=== PATIENT | male | born 1985 | race African-American/Black ===

== ENCOUNTER 2023-03-22 12:13 | Inpatient (IN) | payer OTHER ==
[2023-03-22 12:55] VITALS: BMI 35.9
[2023-03-22] MEDS ORDERED: MAGNESIUM HYDROX 2400MG/30ML ORAL SUSPENSION 30 ML CUP PO PRN (14:08)
[2023-03-22] MEDS ORDERED: NALOXONE HCL (KLOXXADO) 8 MG SPRAY NS PRN (14:08)
[2023-03-22] MEDS ORDERED: MAG HYDROX/AL HYDROX/SIMETH 30 ML UNIT-DOSE CUP PO PRN (14:08)
[2023-03-22] MEDS ORDERED: guaiFENesin 600 MG TABLET.ER (FP) PO PRN (14:08)
[2023-03-22] MEDS ORDERED: ONDANSETRON *ODT* 4 MG TABLET SL PRN (14:08)
[2023-03-22] MEDS ORDERED: BISMUTH SUBSALICYLATE 524 MG/30 ML PO PRN (14:08)
[2023-03-22] MEDS ORDERED: IBUPROFEN 400 MG TABLET (FP) PO PRN (14:08)
[2023-03-22] MEDS ORDERED: NICOTINE 10 MG CARTRIDGE (INHALER) IH PRN (14:08)
[2023-03-22] MEDS ORDERED: BENZONATATE 200 MG CAPSULE PO PRN (14:08)
[2023-03-22] MEDS ORDERED: POLYETHYLENE GLYCOL (HEALTHYLAX) 3350 17 GM PACKET PO PRN (14:08)
[2023-03-22] MEDS ORDERED: IBUPROFEN 600 MG TABLET (FP) PO PRN (14:08)
[2023-03-22] MEDS ORDERED: LOPERAMIDE HCL 2 MG CAPSULE PO PRN (14:08)
[2023-03-22] MEDS ORDERED: BENZOCAINE/MENTHOL (CHLORASEPTIC ) LOZENGE MM PRN (14:08)
[2023-03-22] MEDS ORDERED: DICYCLOMINE HCL 10 MG CAPSULE PO PRN (14:08)
[2023-03-22] MEDS ORDERED: NALOXONE HCL 0.4 MG/ML VIAL IM PRN (14:08)
[2023-03-22] MEDS ORDERED: ACETAMINOPHEN 325 MG TABLET (FP) PO PRN (14:08)
[2023-03-22] MEDS ORDERED: NICOTINE POLACRILEX 2 MG GUM BUC PRN (14:19)
[2023-03-22] MEDS ORDERED: COLLOIDAL OATMEAL 1 BAR EACH TP PRN (14:19)
[2023-03-22] MEDS ORDERED: AMMONIUM LACTATE 12% LOTION 225 GM BOTTLE TP PRN (14:19)
[2023-03-22] MEDS: BACITRACIN ZINC 15 GM TUBE TOPICAL OINTMENT TP SCH (14:49)
[2023-03-22] MEDS: THIAMINE HCL 100 MG TABLET (FP) PO SCH (22:38)
[2023-03-22] MEDS: hydrOXYzine PAMOATE 25 MG CAPSULE (FP) PO PRN (22:38)
[2023-03-22] MEDS: METHOCARBAMOL 500 MG TABLET PO PRN (22:38)
[2023-03-22] MEDS: MELATONIN 5 MG TABLETS PO SCH (22:38)
[2023-03-22] MEDS: SULFAMETHOXAZOLE/TRIMETHOPRIM 800MG/160MG D.S. TABLET PO SCH (22:38)
[2023-03-23] MEDS: BACITRACIN ZINC 15 GM TUBE TOPICAL OINTMENT TP SCH (11:01)
[2023-03-23] MEDS: NICOTINE 21 MG/24 HOURS TOPICAL PATCH TD SCH (11:02)
[2023-03-23] MEDS: PRENATAL VITAMINS W/ FOLIC ACID TABLET (FP) PO SCH (11:02)
[2023-03-23] MEDS: SULFAMETHOXAZOLE/TRIMETHOPRIM 800MG/160MG D.S. TABLET PO SCH ×2 (11:02→22:54)
[2023-03-23] MEDS ORDERED: diazePAM 5 MG TABLET PO PRN (11:55)
[2023-03-23 12:30] LABS: HEMATOCRIT 34.3 % (35.4-49); HEMOGLOBIN 11.2 GM/dL (11.7-16.9); MCH 27.5 pg (25.7-33.7); MCHC 32.7 g/dl (32.0-35.9); MEAN PLT VOLUME 9.3 fl (7.5-11.1); PLATELET COUNT 231 10^3/uL (134-434); RBC 4.09 M/mm3 (4.00-5.60); RDW 14.9 % (11.9-15.9); WHITE BLOOD COUNT 4.7 K/mm3 (4.0-10.0)
[2023-03-23] MEDS: risperiDONE 1 MG TABLET PO SCH ×2 (12:51→23:03)
[2023-03-23 13:19] LABS: POTASSIUM 4.3 mmol/L (3.5-5.1)
[2023-03-23 13:47] LABS: ALBUMIN 3.4 g/dl (3.4-5.0); BLOOD UREA NITROGEN 10.1 mg/dL (7-18); CALCIUM 9.2 mg/dL (8.5-10.1)
[2023-03-23 13:49] LABS: CREATININE 0.9 mg/dL (0.55-1.3)
[2023-03-23 13:51] LABS: BILIRUBIN,TOTAL 0.3 mg/dL (0.2-1); TOT PROT 6.7 g/dl (6.4-8.2)
[2023-03-23] MEDS: diazePAM 5 MG TABLET PO SCH ×2 (17:31→23:03)
[2023-03-23] MEDS: DIVALPROEX SODIUM 500 MG TABLET E.C. PO SCH (23:02)
[2023-03-23] MEDS: MELATONIN 5 MG TABLETS PO SCH (23:02)
[2023-03-23] MEDS: THIAMINE HCL 100 MG TABLET (FP) PO SCH (23:03)
[2023-03-24] MEDS: diazePAM 5 MG TABLET PO SCH ×4 (05:50→22:36)
[2023-03-24] MEDS: hydrOXYzine PAMOATE 25 MG CAPSULE (FP) PO PRN (10:48)
[2023-03-24] MEDS: METHOCARBAMOL 500 MG TABLET PO PRN (10:48)
[2023-03-24] MEDS: risperiDONE 1 MG TABLET PO SCH ×2 (10:48→22:32)
[2023-03-24] MEDS: PRENATAL VITAMINS W/ FOLIC ACID TABLET (FP) PO SCH (10:48)
[2023-03-24] MEDS: DIVALPROEX SODIUM 500 MG TABLET E.C. PO SCH ×2 (10:48→22:31)
[2023-03-24] MEDS: BACITRACIN ZINC 15 GM TUBE TOPICAL OINTMENT TP SCH (10:48)
[2023-03-24] MEDS: SULFAMETHOXAZOLE/TRIMETHOPRIM 800MG/160MG D.S. TABLET PO SCH ×2 (10:48→22:31)
[2023-03-24] MEDS: NICOTINE 21 MG/24 HOURS TOPICAL PATCH TD SCH (10:49)
[2023-03-24] MEDS: THIAMINE HCL 100 MG TABLET (FP) PO SCH (22:31)
[2023-03-24] MEDS: MELATONIN 5 MG TABLETS PO SCH (22:32)
[2023-03-25] MEDS: diazePAM 5 MG TABLET PO SCH ×3 (06:07→22:30)
[2023-03-25] MEDS: SULFAMETHOXAZOLE/TRIMETHOPRIM 800MG/160MG D.S. TABLET PO SCH ×2 (10:51→22:30)
[2023-03-25] MEDS: PRENATAL VITAMINS W/ FOLIC ACID TABLET (FP) PO SCH (10:51)
[2023-03-25] MEDS: DIVALPROEX SODIUM 500 MG TABLET E.C. PO SCH ×2 (10:51→22:30)
[2023-03-25] MEDS: risperiDONE 1 MG TABLET PO SCH ×2 (10:52→22:30)
[2023-03-25] MEDS: BACITRACIN ZINC 15 GM TUBE TOPICAL OINTMENT TP SCH (10:52)
[2023-03-25] MEDS: NICOTINE 21 MG/24 HOURS TOPICAL PATCH TD SCH (10:52)
[2023-03-25] MEDS: THIAMINE HCL 100 MG TABLET (FP) PO SCH (22:30)
[2023-03-25] MEDS: MELATONIN 5 MG TABLETS PO SCH (22:31)
[2023-03-26] MEDS: diazePAM 5 MG TABLET PO SCH ×2 (05:32→18:06)
[2023-03-26] MEDS: PRENATAL VITAMINS W/ FOLIC ACID TABLET (FP) PO SCH (10:48)
[2023-03-26] MEDS: hydrOXYzine PAMOATE 25 MG CAPSULE (FP) PO PRN (10:49)
[2023-03-26] MEDS: SULFAMETHOXAZOLE/TRIMETHOPRIM 800MG/160MG D.S. TABLET PO SCH ×2 (10:49→22:15)
[2023-03-26] MEDS: DIVALPROEX SODIUM 500 MG TABLET E.C. PO SCH ×2 (10:49→22:15)
[2023-03-26] MEDS: risperiDONE 1 MG TABLET PO SCH ×2 (10:49→22:15)
[2023-03-26] MEDS: METHOCARBAMOL 500 MG TABLET PO PRN (10:49)
[2023-03-26] MEDS: NICOTINE 21 MG/24 HOURS TOPICAL PATCH TD SCH (10:50)
[2023-03-26] MEDS: BACITRACIN ZINC 15 GM TUBE TOPICAL OINTMENT TP SCH (10:50)
[2023-03-26] MEDS: MELATONIN 5 MG TABLETS PO SCH (22:15)
[2023-03-26] MEDS: THIAMINE HCL 100 MG TABLET (FP) PO SCH (22:15)
[2023-03-27] MEDS ORDERED: diazePAM 5 MG TABLET PO ONE (06:00)
[2023-03-27 06:55] VITALS: TEMP 97.3
[2023-03-27 09:42] VITALS: BP 108/75; PULSE 86; RESP 18
[2023-03-27] MEDS: SULFAMETHOXAZOLE/TRIMETHOPRIM 800MG/160MG D.S. TABLET PO SCH (09:59)
[2023-03-27] MEDS: PRENATAL VITAMINS W/ FOLIC ACID TABLET (FP) PO SCH (09:59)
[2023-03-27] MEDS: DIVALPROEX SODIUM 500 MG TABLET E.C. PO SCH (09:59)
[2023-03-27] MEDS: BACITRACIN ZINC 15 GM TUBE TOPICAL OINTMENT TP SCH (09:59)
[2023-03-27] MEDS: risperiDONE 1 MG TABLET PO SCH (09:59)
[2023-03-27] MEDS: NICOTINE 21 MG/24 HOURS TOPICAL PATCH TD SCH (10:00)
== END 2023-03-27 11:25 | disposition other institution (70) | DRG 774 ==
LOC: YASAS 12:13 → Y6N 14:00
PROVIDERS: ADMIT Allergy & Immunology; ATTEND Surgery
PROC: HZ2ZZZZ Detoxification Services for Substance Abuse Treatment (ICD-10-PCS; principal; 2023-03-22)
DX: F13.230 Sedative, hypnotic or anxiolytic dependence with withdrawal, uncomplicated (principal); F14.20 Cocaine dependence, uncomplicated; F12.20 Cannabis dependence, uncomplicated; F17.210 Nicotine dependence, cigarettes, uncomplicated; F25.9 Schizoaffective disorder, unspecified; F31.9 Bipolar disorder, unspecified; L97.319 Non-pressure chronic ulcer of right ankle with unspecified severity; Z86.718 Personal history of other venous thrombosis and embolism; Z86.11 Personal history of tuberculosis
CPT/HCPCS: 36415; 71045-TC-FY; 80053; 85027; 86780; 87811; C9803-CS; U0003; U0005

== ENCOUNTER 2023-03-27 11:28 | Inpatient (IN) | payer OTHER ==
[2023-03-27] MEDS ORDERED: hydrOXYzine PAMOATE 25 MG CAPSULE (FP) PO PRN (11:53)
[2023-03-27] MEDS ORDERED: guaiFENesin 600 MG TABLET.ER (FP) PO PRN (11:53)
[2023-03-27] MEDS ORDERED: IBUPROFEN 400 MG TABLET (FP) PO PRN (11:53)
[2023-03-27] MEDS ORDERED: BENZOCAINE/MENTHOL (CHLORASEPTIC ) LOZENGE MM PRN (11:53)
[2023-03-27] MEDS ORDERED: NICOTINE POLACRILEX 2 MG GUM BUC PRN (11:53)
[2023-03-27] MEDS ORDERED: COLLOIDAL OATMEAL 1 BAR EACH TP PRN (11:53)
[2023-03-27] MEDS ORDERED: IBUPROFEN 600 MG TABLET (FP) PO PRN (11:53)
[2023-03-27] MEDS ORDERED: AMMONIUM LACTATE 12% LOTION 225 GM BOTTLE TP PRN (11:53)
[2023-03-27] MEDS ORDERED: MAGNESIUM HYDROX 2400MG/30ML ORAL SUSPENSION 30 ML CUP PO PRN (11:53)
[2023-03-27] MEDS ORDERED: LOPERAMIDE HCL 2 MG CAPSULE PO PRN (11:53)
[2023-03-27] MEDS ORDERED: MAG HYDROX/AL HYDROX/SIMETH 30 ML UNIT-DOSE CUP PO PRN (11:53)
[2023-03-27] MEDS ORDERED: ACETAMINOPHEN 325 MG TABLET (FP) PO PRN (11:53)
[2023-03-27] MEDS ORDERED: POLYETHYLENE GLYCOL (HEALTHYLAX) 3350 17 GM PACKET PO PRN (11:53)
[2023-03-27] MEDS ORDERED: BENZONATATE 200 MG CAPSULE PO PRN (11:53)
[2023-03-27] MEDS: MELATONIN 5 MG TABLETS PO SCH (21:17)
[2023-03-27] MEDS: THIAMINE HCL 100 MG TABLET (FP) PO SCH (21:17)
[2023-03-27] MEDS: DIVALPROEX SODIUM 500 MG TABLET E.C. PO SCH (21:18)
[2023-03-27] MEDS: risperiDONE 1 MG TABLET PO SCH (21:18)
[2023-03-27] MEDS ORDERED: SULFAMETHOXAZOLE/TRIMETHOPRIM 800MG/160MG D.S. TABLET PO SCH (22:00)
[2023-03-27] MEDS ORDERED: DIVALPROEX SODIUM 500 MG TABLET E.C. PO SCH (22:00)
[2023-03-28] MEDS: PRENATAL VITAMINS W/ FOLIC ACID TABLET (FP) PO SCH (09:48)
[2023-03-28] MEDS: NICOTINE 21 MG/24 HOURS TOPICAL PATCH TD SCH (09:48)
[2023-03-28] MEDS: risperiDONE 1 MG TABLET PO SCH ×2 (09:48→21:39)
[2023-03-28] MEDS: DIVALPROEX SODIUM 500 MG TABLET E.C. PO SCH ×2 (09:48→21:40)
[2023-03-28] MEDS: BACITRACIN ZINC 15 GM TUBE TOPICAL OINTMENT TP SCH (10:15)
[2023-03-28] MEDS: THIAMINE HCL 100 MG TABLET (FP) PO SCH (21:39)
[2023-03-28] MEDS: METHOCARBAMOL 500 MG TABLET PO PRN (21:40)
[2023-03-28] MEDS: MELATONIN 5 MG TABLETS PO SCH (21:40)
[2023-03-29] MEDS: BACITRACIN ZINC 15 GM TUBE TOPICAL OINTMENT TP SCH (10:06)
[2023-03-29] MEDS: NICOTINE 21 MG/24 HOURS TOPICAL PATCH TD SCH (10:07)
[2023-03-29] MEDS: risperiDONE 1 MG TABLET PO SCH ×2 (10:07→21:43)
[2023-03-29] MEDS: PRENATAL VITAMINS W/ FOLIC ACID TABLET (FP) PO SCH (10:07)
[2023-03-29] MEDS: DIVALPROEX SODIUM 500 MG TABLET E.C. PO SCH ×2 (10:07→21:44)
[2023-03-29] MEDS: THIAMINE HCL 100 MG TABLET (FP) PO SCH (21:44)
[2023-03-29] MEDS: MELATONIN 5 MG TABLETS PO SCH (21:44)
[2023-03-30] MEDS: risperiDONE 1 MG TABLET PO SCH ×2 (09:46→21:09)
[2023-03-30] MEDS: PRENATAL VITAMINS W/ FOLIC ACID TABLET (FP) PO SCH (09:47)
[2023-03-30] MEDS: BACITRACIN ZINC 15 GM TUBE TOPICAL OINTMENT TP SCH (09:47)
[2023-03-30] MEDS: NICOTINE 21 MG/24 HOURS TOPICAL PATCH TD SCH (09:47)
[2023-03-30] MEDS: DIVALPROEX SODIUM 500 MG TABLET E.C. PO SCH ×2 (09:47→21:09)
[2023-03-30] MEDS: MELATONIN 5 MG TABLETS PO SCH (21:09)
[2023-03-30] MEDS: METHOCARBAMOL 500 MG TABLET PO PRN (21:09)
[2023-03-30] MEDS: THIAMINE HCL 100 MG TABLET (FP) PO SCH (21:09)
[2023-03-31 06:45] VITALS: TEMP 97.7
[2023-03-31] MEDS: PRENATAL VITAMINS W/ FOLIC ACID TABLET (FP) PO SCH (09:49)
[2023-03-31] MEDS: risperiDONE 1 MG TABLET PO SCH ×2 (09:50→21:22)
[2023-03-31] MEDS: DIVALPROEX SODIUM 500 MG TABLET E.C. PO SCH ×2 (09:50→21:22)
[2023-03-31] MEDS: BACITRACIN ZINC 15 GM TUBE TOPICAL OINTMENT TP SCH (10:25)
[2023-03-31] MEDS: NICOTINE 21 MG/24 HOURS TOPICAL PATCH TD SCH (10:25)
[2023-03-31] MEDS: METHOCARBAMOL 500 MG TABLET PO PRN (21:22)
[2023-03-31] MEDS: THIAMINE HCL 100 MG TABLET (FP) PO SCH (21:22)
[2023-03-31] MEDS: MELATONIN 5 MG TABLETS PO SCH (21:22)
[2023-04-01 09:26] VITALS: BP 109/60; PULSE 82; RESP 18
[2023-04-01] MEDS: PRENATAL VITAMINS W/ FOLIC ACID TABLET (FP) PO SCH (09:38)
[2023-04-01] MEDS: BACITRACIN ZINC 15 GM TUBE TOPICAL OINTMENT TP SCH (09:39)
[2023-04-01] MEDS: NICOTINE 21 MG/24 HOURS TOPICAL PATCH TD SCH (09:39)
[2023-04-01] MEDS: risperiDONE 1 MG TABLET PO SCH (09:39)
[2023-04-01] MEDS: DIVALPROEX SODIUM 500 MG TABLET E.C. PO SCH (09:39)
== END 2023-04-01 10:10 | disposition left against medical advice (07) | DRG 770 ==
LOC: YASAS 11:28 → Y3W 11:29
PROVIDERS: ADMIT Allergy & Immunology; ATTEND Psychiatry & Neurology Pain Medicine
PROC: HZ42ZZZ Group Counseling for Substance Abuse Treatment, Cognitive-Behavioral (ICD-10-PCS; principal; 2023-03-27)
DX: F13.20 Sedative, hypnotic or anxiolytic dependence, uncomplicated (principal); F14.20 Cocaine dependence, uncomplicated; F12.20 Cannabis dependence, uncomplicated; F17.210 Nicotine dependence, cigarettes, uncomplicated; F25.9 Schizoaffective disorder, unspecified; F31.9 Bipolar disorder, unspecified; I83.013 Varicose veins of right lower extremity with ulcer of ankle
CPT/HCPCS: 36415; 80164; 86803

== ENCOUNTER 2023-04-26 14:40 | Inpatient (IN) | payer OTHER ==
[2023-04-26 15:23] VITALS: BMI 37.0
[2023-04-26] MEDS ORDERED: BENZONATATE 200 MG CAPSULE PO PRN (17:15)
[2023-04-26] MEDS ORDERED: AMMONIUM LACTATE 12% LOTION 225 GM BOTTLE TP PRN (17:15)
[2023-04-26] MEDS ORDERED: P-EPHED 60MG/TRIPROLIDI 2.5MG TABLET PO PRN (17:15)
[2023-04-26] MEDS ORDERED: MAG HYDROX/AL HYDROX/SIMETH 30 ML UNIT-DOSE CUP PO PRN (17:15)
[2023-04-26] MEDS ORDERED: LOPERAMIDE HCL 2 MG CAPSULE PO PRN (17:15)
[2023-04-26] MEDS ORDERED: BENZOCAINE/MENTHOL (CHLORASEPTIC ) LOZENGE MM PRN (17:15)
[2023-04-26] MEDS ORDERED: guaiFENesin 600 MG TABLET.ER (FP) PO PRN (17:15)
[2023-04-26] MEDS ORDERED: MAGNESIUM HYDROX 2400MG/30ML ORAL SUSPENSION 30 ML CUP PO PRN (17:15)
[2023-04-26] MEDS ORDERED: ACETAMINOPHEN 325 MG TABLET (FP) PO PRN (17:15)
[2023-04-26] MEDS ORDERED: POLYETHYLENE GLYCOL (HEALTHYLAX) 3350 17 GM PACKET PO PRN (17:15)
[2023-04-26] MEDS ORDERED: NICOTINE 10 MG CARTRIDGE (INHALER) IH PRN (17:15)
[2023-04-26] MEDS: THIAMINE HCL 100 MG TABLET (FP) PO SCH (21:34)
[2023-04-26] MEDS: MELATONIN 5 MG TABLETS PO SCH (21:34)
[2023-04-26] MEDS: IBUPROFEN 600 MG TABLET (FP) PO PRN (21:34)
[2023-04-27] MEDS: COLLOIDAL OATMEAL 1 BAR EACH TP PRN (06:43)
[2023-04-27] MEDS: IBUPROFEN 600 MG TABLET (FP) PO PRN ×2 (06:45→21:06)
[2023-04-27] MEDS: PRENATAL VITAMINS W/ FOLIC ACID TABLET (FP) PO SCH (10:12)
[2023-04-27 11:14] LABS: HEMATOCRIT 34.8 % (35.4-49); HEMOGLOBIN 10.8 GM/dL (11.7-16.9); MCH 26.7 pg (25.7-33.7); MEAN CELL VOLUME 86.2 fl (80-96); PLATELET COUNT 191 10^3/uL (134-434); RBC 4.04 M/mm3 (4.00-5.60); RDW 14.8 % (11.9-15.9); WHITE BLOOD COUNT 3.9 K/mm3 (4.0-10.0)
[2023-04-27 11:24] LABS: POTASSIUM 4.1 mmol/L (3.5-5.1)
[2023-04-27 11:33] LABS: CALCIUM 8.8 mg/dL (8.5-10.1)
[2023-04-27 11:35] LABS: ALBUMIN 3.3 g/dl (3.4-5.0)
[2023-04-27 11:39] LABS: BILIRUBIN,TOTAL 0.8 mg/dL (0.2-1); TOT PROT 6.5 g/dl (6.4-8.2)
[2023-04-27 12:19] LABS: SYPHILIS W/ RPR CONF NON-REACTIVE (NONREACTIVE)
[2023-04-27 18:15] LABS: PH,URINE 6.5 (5.0-8.0); URINE APPEARANCE CLEAR; URINE BILIRUBIN NEGATIVE (NEGATIVE); URINE COLOR YELLOW; URINE GLUCOSE (UA) NEGATIVE (NEGATIVE); URINE KETONE NEGATIVE (NEGATIVE); URINE LEUK ESTERASE NEGATIVE (NEGATIVE); URINE NITRITE NEGATIVE (NEGATIVE); URINE PROTEIN NEGATIVE (NEGATIVE)
[2023-04-27] MEDS: MELATONIN 5 MG TABLETS PO SCH (21:06)
[2023-04-27] MEDS: THIAMINE HCL 100 MG TABLET (FP) PO SCH (21:06)
[2023-04-27] MEDS: DIVALPROEX SODIUM 500 MG TABLET E.C. PO SCH (21:06)
[2023-04-27] MEDS: risperiDONE 1 MG TABLET PO SCH (21:07)
[2023-04-28] MEDS: risperiDONE 1 MG TABLET PO SCH ×2 (09:57→21:05)
[2023-04-28] MEDS: DIVALPROEX SODIUM 500 MG TABLET E.C. PO SCH ×2 (09:57→21:05)
[2023-04-28] MEDS: PRENATAL VITAMINS W/ FOLIC ACID TABLET (FP) PO SCH (09:57)
[2023-04-28] MEDS: THIAMINE HCL 100 MG TABLET (FP) PO SCH (21:05)
[2023-04-28] MEDS: IBUPROFEN 600 MG TABLET (FP) PO PRN (21:05)
[2023-04-28] MEDS: MELATONIN 5 MG TABLETS PO SCH (21:05)
[2023-04-29] MEDS: PRENATAL VITAMINS W/ FOLIC ACID TABLET (FP) PO SCH (10:11)
[2023-04-29] MEDS: DIVALPROEX SODIUM 500 MG TABLET E.C. PO SCH ×2 (10:11→21:14)
[2023-04-29] MEDS: risperiDONE 1 MG TABLET PO SCH ×2 (10:11→21:14)
[2023-04-29] MEDS: IBUPROFEN 600 MG TABLET (FP) PO PRN (10:11)
[2023-04-29] MEDS: THIAMINE HCL 100 MG TABLET (FP) PO SCH (21:14)
[2023-04-29] MEDS: MELATONIN 5 MG TABLETS PO SCH (21:14)
[2023-04-30] MEDS: IBUPROFEN 600 MG TABLET (FP) PO PRN ×2 (09:47→21:06)
[2023-04-30] MEDS: DIVALPROEX SODIUM 500 MG TABLET E.C. PO SCH ×2 (09:47→21:05)
[2023-04-30] MEDS: risperiDONE 1 MG TABLET PO SCH ×2 (09:47→21:05)
[2023-04-30] MEDS: PRENATAL VITAMINS W/ FOLIC ACID TABLET (FP) PO SCH (09:47)
[2023-04-30] MEDS: THIAMINE HCL 100 MG TABLET (FP) PO SCH (21:05)
[2023-04-30] MEDS: MELATONIN 5 MG TABLETS PO SCH (21:05)
[2023-05-01] MEDS: DIVALPROEX SODIUM 500 MG TABLET E.C. PO SCH ×2 (09:40→21:08)
[2023-05-01] MEDS: PRENATAL VITAMINS W/ FOLIC ACID TABLET (FP) PO SCH (09:40)
[2023-05-01] MEDS: risperiDONE 1 MG TABLET PO SCH ×2 (09:40→21:08)
[2023-05-01] MEDS: IBUPROFEN 600 MG TABLET (FP) PO PRN (21:09)
[2023-05-01] MEDS: MELATONIN 5 MG TABLETS PO SCH (21:09)
[2023-05-01] MEDS: THIAMINE HCL 100 MG TABLET (FP) PO SCH (21:09)
[2023-05-02] MEDS: PRENATAL VITAMINS W/ FOLIC ACID TABLET (FP) PO SCH (09:57)
[2023-05-02] MEDS: risperiDONE 1 MG TABLET PO SCH ×2 (09:58→21:25)
[2023-05-02] MEDS: DIVALPROEX SODIUM 500 MG TABLET E.C. PO SCH ×2 (12:08→21:24)
[2023-05-02] MEDS: THIAMINE HCL 100 MG TABLET (FP) PO SCH (21:24)
[2023-05-02] MEDS: MELATONIN 5 MG TABLETS PO SCH (21:25)
[2023-05-02] MEDS: IBUPROFEN 600 MG TABLET (FP) PO PRN (21:25)
[2023-05-03 08:07] VITALS: RESP 18
[2023-05-03] MEDS: DIVALPROEX SODIUM 500 MG TABLET E.C. PO SCH ×2 (10:04→21:06)
[2023-05-03] MEDS: risperiDONE 1 MG TABLET PO SCH ×2 (10:04→21:06)
[2023-05-03] MEDS: PRENATAL VITAMINS W/ FOLIC ACID TABLET (FP) PO SCH (10:04)
[2023-05-03] MEDS: IBUPROFEN 600 MG TABLET (FP) PO PRN ×2 (10:05→21:06)
[2023-05-03] MEDS: MELATONIN 5 MG TABLETS PO SCH (21:06)
[2023-05-03] MEDS: THIAMINE HCL 100 MG TABLET (FP) PO SCH (21:06)
[2023-05-04] MEDS: DIVALPROEX SODIUM 500 MG TABLET E.C. PO SCH ×2 (10:08→21:24)
[2023-05-04] MEDS: risperiDONE 1 MG TABLET PO SCH ×2 (10:08→21:24)
[2023-05-04] MEDS: PRENATAL VITAMINS W/ FOLIC ACID TABLET (FP) PO SCH (10:08)
[2023-05-04] MEDS: IBUPROFEN 600 MG TABLET (FP) PO PRN (21:24)
[2023-05-04] MEDS: MELATONIN 5 MG TABLETS PO SCH (21:24)
[2023-05-04] MEDS: THIAMINE HCL 100 MG TABLET (FP) PO SCH (21:24)
[2023-05-05] MEDS: DIVALPROEX SODIUM 500 MG TABLET E.C. PO SCH ×2 (10:29→21:30)
[2023-05-05] MEDS: risperiDONE 1 MG TABLET PO SCH ×2 (10:29→21:30)
[2023-05-05] MEDS: PRENATAL VITAMINS W/ FOLIC ACID TABLET (FP) PO SCH (10:29)
[2023-05-05] MEDS: MELATONIN 5 MG TABLETS PO SCH (21:30)
[2023-05-05] MEDS: THIAMINE HCL 100 MG TABLET (FP) PO SCH (21:30)
[2023-05-05] MEDS: IBUPROFEN 600 MG TABLET (FP) PO PRN (21:30)
[2023-05-06] MEDS: risperiDONE 1 MG TABLET PO SCH ×2 (09:48→21:58)
[2023-05-06] MEDS: DIVALPROEX SODIUM 500 MG TABLET E.C. PO SCH ×2 (09:48→21:58)
[2023-05-06] MEDS: PRENATAL VITAMINS W/ FOLIC ACID TABLET (FP) PO SCH (09:48)
[2023-05-06] MEDS: MELATONIN 5 MG TABLETS PO SCH (21:58)
[2023-05-06] MEDS: IBUPROFEN 400 MG TABLET (FP) PO PRN (21:58)
[2023-05-06] MEDS: THIAMINE HCL 100 MG TABLET (FP) PO SCH (21:59)
[2023-05-07] MEDS: PRENATAL VITAMINS W/ FOLIC ACID TABLET (FP) PO SCH (10:21)
[2023-05-07] MEDS: DIVALPROEX SODIUM 500 MG TABLET E.C. PO SCH ×2 (10:22→21:32)
[2023-05-07] MEDS: risperiDONE 1 MG TABLET PO SCH ×2 (10:22→21:32)
[2023-05-07] MEDS: THIAMINE HCL 100 MG TABLET (FP) PO SCH (21:32)
[2023-05-07] MEDS: MELATONIN 5 MG TABLETS PO SCH (21:32)
[2023-05-07] MEDS: IBUPROFEN 600 MG TABLET (FP) PO PRN (21:33)
[2023-05-08] MEDS: DIVALPROEX SODIUM 500 MG TABLET E.C. PO SCH ×2 (09:52→21:11)
[2023-05-08] MEDS: risperiDONE 1 MG TABLET PO SCH ×2 (09:52→21:11)
[2023-05-08] MEDS: PRENATAL VITAMINS W/ FOLIC ACID TABLET (FP) PO SCH (09:52)
[2023-05-08] MEDS: THIAMINE HCL 100 MG TABLET (FP) PO SCH (21:11)
[2023-05-08] MEDS: MELATONIN 5 MG TABLETS PO SCH (21:11)
[2023-05-08] MEDS: IBUPROFEN 600 MG TABLET (FP) PO PRN (21:12)
[2023-05-09] MEDS: risperiDONE 1 MG TABLET PO SCH ×2 (10:14→21:39)
[2023-05-09] MEDS: PRENATAL VITAMINS W/ FOLIC ACID TABLET (FP) PO SCH (10:14)
[2023-05-09] MEDS: DIVALPROEX SODIUM 500 MG TABLET E.C. PO SCH ×2 (10:14→21:39)
[2023-05-09] MEDS: IBUPROFEN 400 MG TABLET (FP) PO PRN ×2 (10:14→21:39)
[2023-05-09] MEDS: COLLOIDAL OATMEAL 1 BAR EACH TP PRN (10:16)
[2023-05-09] MEDS: MELATONIN 5 MG TABLETS PO SCH (21:39)
[2023-05-09] MEDS: THIAMINE HCL 100 MG TABLET (FP) PO SCH (21:39)
[2023-05-10 07:05] VITALS: BP 126/78; PULSE 74; TEMP 98
[2023-05-10] MEDS: risperiDONE 1 MG TABLET PO SCH (09:26)
[2023-05-10] MEDS: DIVALPROEX SODIUM 500 MG TABLET E.C. PO SCH (09:26)
[2023-05-10] MEDS: PRENATAL VITAMINS W/ FOLIC ACID TABLET (FP) PO SCH (09:26)
== END 2023-05-10 09:50 | disposition home or self-care (01) | DRG 772 ==
LOC: YASAS 14:40 → Y3W 17:14
PROVIDERS: ADMIT Allergy & Immunology; ATTEND Psychiatry & Neurology Pain Medicine
PROC: HZ42ZZZ Group Counseling for Substance Abuse Treatment, Cognitive-Behavioral (ICD-10-PCS; principal; 2023-04-26)
DX: F10.20 Alcohol dependence, uncomplicated (principal); F14.20 Cocaine dependence, uncomplicated; F13.10 Sedative, hypnotic or anxiolytic abuse, uncomplicated; F12.10 Cannabis abuse, uncomplicated; F17.210 Nicotine dependence, cigarettes, uncomplicated; F25.1 Schizoaffective disorder, depressive type; F31.9 Bipolar disorder, unspecified; L97.919 Non-pressure chronic ulcer of unspecified part of right lower leg with unspecified severity; Z59.02 Unsheltered homelessness
CPT/HCPCS: 26055; 36415; 80053; 80164; 81003; 85027; 86780; 86803; 87635